=== PATIENT | male | born 1980 | race American Indian/Alaskan Native ===

== ENCOUNTER 2019-11-11 18:32 | Emergency (ER) | payer BC, MEDICAID, OTHER ==
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
== END 2019-11-11 20:34 | disposition home or self-care (01) ==
LOC: DL.ED 18:32
DX: S20.212A Contusion of left front wall of thorax, initial encounter (principal); X58.XXXA Exposure to other specified factors, initial encounter
CPT/HCPCS: 71101-RT; 81003; 99283

== ENCOUNTER 2025-01-01 21:12 | Emergency (ER) | payer MEDICAID ==
[2025-01-01] MEDS ORDERED: Famotidine 20 MG/2 ML SDV ONE (21:13)
[2025-01-01] MEDS ORDERED: Sodium Chloride 0.9% 10 ML Syringe FLUSH PRN (21:14)
[2025-01-01] MEDS: Sodium Chloride 0.9% 1,000 ML IV ONE (21:15)
[2025-01-01] MEDS: diphenhydrAMINE 50 MG/ML SDV IVPUSH ONE (21:25)
[2025-01-01] MEDS: Famotidine 20 MG/2 ML SDV IVPUSH ONE (21:26)
[2025-01-01] MEDS: Albuterol 0.083% 2.5 MG/3 ML Neb Soln NEB ONE (21:32)
== END 2025-01-01 23:32 | disposition home or self-care (01) ==
LOC: DL.ED 21:12
DX: T78.2XXA Anaphylactic shock, unspecified, initial encounter (principal)
CPT/HCPCS: 71045; 96374; 96375; 99284; J1200; J7030; J7613; A9270-GY